=== PATIENT | female | born 1995 | race Caucasian/White ===

== ENCOUNTER 2017-05-13 22:37 | Emergency (ER) | payer SELFPAY ==
[2017-05-13] MEDS ORDERED: Ondansetron ODT TAB* 4 MG PO ONE (23:38)
[2017-05-14] MEDS ORDERED: Acetaminophen TAB* 325 MG PO ONE (00:47)
--- NOTE | 2017-05-14 01:50 | ED ---
Laceration/Wound HPI - HPI Summary HPI Summary: 21 female presents to ED BIBA with complaints of a forehead lac that occurred just FRONT OF [employer] after hitting her head on the corner of a wall. Patient states she was drinking alcohol and tripped when walking up to the bathroom. Accompanied by boyfriend. Patient denies headache and visual changes. Admits to nausea/ vomiting however is very intoxicated. Denies neck pain. No other injuries. Admits to some swelling and bruising at area of injury on forehead. Is not on blood thinners. Tetanus is UTD. Denies LOC. States she did have too much to drink tonight. Fall was witnessed. No medications. No PMHx. No other complaints. - History of Current Complaint Stated Complaint: HEAD INJURY Mechanism of Injury: Sharp/Blunt Trauma Onset/Duration: Sudden Onset Aggravating: Movement Alleviating: Compression Timing: Constant Onset Severity: Mild Current Severity: Mild Pain Intensity: 5 Pain Scale Used: 0-10 Numeric Associated Signs & Symptoms: Bruising - Allergy/Home Medications Allergies/Adverse Reactions: Allergies Allergy/AdvReac Type Severity Reaction Status Date / Time No Known Allergies Allergy Verified 05/13/17 22:48 PMH/Surg Hx/FS Hx/Imm Hx Endocrine/Hematology History: Denies: Hx Anticoagulant Therapy, Hx Diabetes Cardiovascular History: Denies: Hx Hypertension Respiratory History: Denies: Hx Asthma - Surgical History Surgery Procedure, Year, and Place: n/a - Immunization History Immunizations Up to Date: Yes Infectious Disease History: No Infectious Disease History: Denies: Traveled Outside the [place] in Last 30 Days - Family History Known Family History: Positive: None - Social History Alcohol Use: Weekly Substance Use Type: Reports: None Smoking Status (MU): Never Smoked Tobacco Review of Systems Constitutional: Negative Cardiovascular: Negative Respiratory: Negative Positive: Vomiting, Nausea Positive: Other - laceration to forehead Neurological: Negative All Other Systems Reviewed And Are Negative: Yes Physical Exam Triage Information Reviewed: Yes Vital Signs On Initial Exam: Initial Vitals Temp Pulse Resp BP Pulse Ox 98.1 F 96 18 124/65 98 05/13/17 22:45 05/13/17 22:45 05/13/17 22:45 05/13/17 22:45 05/13/17 22:45 Vital Signs Reviewed: Yes Appearance: Positive: Well-Appearing - stuporous, No Pain Distress, Well- Nourished Skin: Positive: Warm, Skin Color Reflects Adequate Perfusion, Dry, Other - 1cm linear laceration to right frontal forehead bleeding controlled. Negative: Cold , Numb, Cyanosis @, Jaundiced, Pale, Erythema @ Head/Face: Positive: Normal Head/Face Inspection, Scalp - forehead laceration as described above with hematoma size of a quarter. bleeding controlled. no racoon eyes. epistaxis or battles signs Eyes: Positive: Normal, EOMI, CHERI, Conjunctiva Clear ENT: Positive: Hearing grossly normal, Pharynx normal Neck: Positive: Supple, Nontender - and no sign of injury, No Lymphadenopathy Respiratory/Lung Sounds: Positive: Clear to Auscultation, Breath Sounds Present. Negative: Rales, Rhonchi, Wheezes Cardiovascular: Positive: Normal, RRR, Pulses are Symmetrical in both Upper and Lower Extremities. Negative: Murmur, Rub Abdomen Description: Positive: Nontender, Soft Bowel Sounds: Positive: Present Musculoskeletal: Positive: Normal, Strength/ROM Intact Neurological: Positive: Normal - normal neuro exam. mildly stuporous, Sensory/ Motor Intact, Alert, Oriented to Person Place, Time, CN Intact II-III, Reflexes Intact, NV Bundle Intact Distally, Normal Gait - [place] Coma Scale Best Eye Response: 4 - Spontaneous Best Motor Response: 6 - Obeys Commands Best Verbal Response: 5 - Oriented Coma Scale Total: 15 Diagnostics - Vital Signs Vital Signs Temp Pulse Resp BP Pulse Ox 05/13/17 22:45 98.1 F 96 18 124/65 98 - Laboratory Lab Statement: Any lab studies that have been ordered have been reviewed, and results considered in the medical decision making process. - CT brain wo CT Interpretation: Positive (See Comments) - scalp edema without skull fracture or intracranial hemorrhage. chronic sinusitis CT Interpretation Completed By: Radiologist - and myself Re-Evaluation - Re-Evaluation First Eval Re-Evaluation Time: 01:53 Change: Improved - feeling better, appears to be "sobering up". attempted tylenol and zofran however patient vomited it up. has no complaints at this time other than being tired and wanting to go home. Laceration Repair Course/Dx - Course Course Of Treatment: given tylenol and zofran. patient alert and oriented. laceration was irrigated, cleaned and closed with skin adhesive and 2 steri strips without complication. was well approximated. patient tolerated procedure well. CT brain obtained due to patient injury, alcohol use, not remembering hitting her head and nausea/vomiting. Negative CT. Tetanus was UTD. Keep wound clean and dry. Avoid getting wet. Follow up with PCP. Aware of worsening signs and symptoms. Fluids and rest. Ibuprofen/tylenol, ice hematoma. No other concerns at this time. No other injuries and without complaints. - Differential Dx Differental Diagnoses: Hematoma, Laceration - Clinical Impression Provider Diagnoses: Laceration of forehead without complication, Traumatic hematoma of forehead, Alcohol intoxication Discharge - Discharge Plan Condition: Stable Disposition: HOME Patient Education Materials: Care For Your Stitches (ED), Laceration (ED), Alcohol Intoxication (ED), Hematoma (ED) Referrals: [facility] [place] [facility] [Outside] Additional Instructions: Ice forehead hematoma. Do not get laceration wet for 24-48 hours. Do not pick at steri strips or glue, let them fall off on their own. Watch for signs of infection, apply triple antibiotic ointment once steri strips fall off. Apply cocoa butter to avoid scarring once steri strips fall off. Ibuprofen/tylenol for pain and swelling. Drink plenty of fluids and get plenty of rest. Any new or worsening symptoms (profuse vomiting, vision changes, lethargy, altered mental status or severe headache) please seek medical attention. Follow up with PCP for re-check.
[2017-05-14 03:38] VITALS: BP 107/55
--- NOTE | 2017-05-14 08:48 | RAD ---
INDICATION: Small laceration to right forehead after a fall. + EtOH. COMPARISON: None. TECHNIQUE: Contiguous axial sections of the brain were obtained from the skull base to the vertex without contrast. FINDINGS: The ventricles, cisterns and sulci are within normal limits. The miller-white matter differentiation is adequately maintained and there is no sulcal effacement. No significant focal abnormality or mass effect is present. There is no evidence for intracranial hemorrhage. Overlying the right frontal bone there is subcutaneous gas and mild induration consistent with history of trauma to this area. There is no underlying calvarial fracture There is moderate paranasal sinus mucosal thickening involving the sphenoid sinus, frontal sinuses and bilateral ethmoid air cells. IMPRESSION: 1. Evidence of soft tissue injury overlying the right frontal bone without underlying calvarial fracture or intracranial hemorrhage. 2. Paranasal sinus mucosal disease.
== END 2017-05-14 03:38 | disposition home or self-care (01) ==
LOC: ED 22:37
DX: S01.81XA Laceration without foreign body of other part of head, initial encounter (principal); R11.2 Nausea with vomiting, unspecified; F10.129 Alcohol abuse with intoxication, unspecified; W22.01XA Walked into wall, initial encounter; Y93.9 Activity, unspecified; Y92.9 Unspecified place or not applicable
CPT/HCPCS: 70450; 99282; A9270-GY